=== PATIENT | female | born 1970 | race Caucasian/White ===

== ENCOUNTER 2017-01-02 19:41 | Emergency (ER) | payer OTHER ==
--- OUTSIDE RECORDS SUMMARY | 2017-01-02 20:30 | XMS REPORT | Continuity of Care Document ---
:1970 Author Organization [facility] ([facility]) [place] [address] Phone [phone] Care Team Providers Name Role Phone Dwayne Vazquez Primary Care Provider [phone] Source Comments This disclosure is being made pursuant to the Care Everywhere program, applicable federal and state laws, and may not contain all informaitonavailable regarding this patient.[facility] ([facility]) Active Allergies and Adverse Reactions No Active Allergies Current Medications Not on file Active Problems Problem Noted Date Cough 12/20/2006 Immunizations Name Dates Previously Given Next Due Influenza, unspecified 06/23/2006 Pneumococcal, unspecified 12/21/2006 Social History Tobacco Use Types Packs/Day Years Used Date Never Assessed Last Filed Vital Signs Vital Sign Reading Time Taken Blood Pressure 111/69 01/28/2007 1:50 PM CDT Pulse 98 01/28/2007 1:50 PM CDT Temperature 36.1 C (96.98 F) 01/28/2007 1:50 PM CDT Respiratory Rate 16 01/13/2007 11:26 AM CDT Height 1.59 m (5' 2.59") 01/20/2007 2:11 PM CDT Weight 109.997 kg (242 lb 8 oz) 01/28/2007 1:50 PM CDT Body Mass Index 43.51 01/28/2007 1:50 PM CDT Oxygen Saturation - - Plan of Care Date Type Specialty Providers Description 01/15/2017 Appointment Med Pulmonary Jamie Denton MD Chief Comp: Patient Reported Reason For Visit Health Maintenance Due Date Last Done Comments Hepatitis B Vaccine (1 of 3 - Primary Series) 1970 Tdap Vaccine 1979 Lipid Disorder Screening 1986 MMR Vaccine 1986 Td Vaccine 1986 Cervical Cancer Screening 1998 Mammogram 2008 Influenza Vaccine: Seasonal Completed 06/23/2006 Results from Last 3 Months Not on file
[2017-01-02] MEDS ORDERED: ALBUTEROL SULFATE/IPRATROPIUM 3 ML NEBU IH ONE ×4 (20:35→21:49)
--- NOTE | 2017-01-02 20:42 | ERNOTE ---
Medical Problem HPI - General Chief Complaint: General Assessment Time Seen by Provider: 01/02/17 20:24 Source: patient Exam Limitations: no limitations - Immun/Allergies/Home Medications Immunizations: IMMUNIZATION HX Immunizations Up to Date Yes History of Influenza Vaccine No Allergies/Adverse Reactions: Allergies No Known Allergies Allergy (Verified 01/02/17 19:50) Home Medications: HOME MEDICATIONS Ketorolac Tromethamine [Toradol] 10 mg PO Q6H PRN #20 tab 10/29/15 [Last Taken Unknown] Albuterol Sulfate/Ipratropium [Duoneb 2.5-0.5MG/3ML Soln] 3 ml IH QID #25 nebu 01/02/17 [Last Taken Unknown] Cetirizine HCl [Zyrtec] 10 mg PO DAILY 01/02/17 [Last Taken Unknown] predniSONE [Prednisone] 10 mg PO DAILY #40 tablet 01/02/17 [Last Taken Unknown] - History of Present History Narrative: Pt states that she has been having trouble with her lungs for approx 4 weeks. She was feeling well despite her allergy to maple trees and having [place] property. Last month there were a few days that were warm and she opened up the windows and has been having problems since then. she has seen the walk-in clinic [address] Harmon-[facility] twice as well. She has been on 2 antibiotics and prednisone 2 or 3 times. She just finished her last prednisone taper 2 days ago and worsened today. She believes her albuterol is not working for her anymore. She does receive weekly immunotherapy injections for her allergies Timing: getting worse Severity: moderate Modifying Factors - (Improves): Absent: medication Review of Systems - Review of Systems Constitutional: Present: recent illness, fatigue EYE: Present: no symptoms reported ENT: Present: nose congestion, nasal drainage Respiratory: Present: shortness of breath, cough, wheezing Cardiology: Present: no symptoms reported Gastrointestinal/Abdominal: Present: no symptoms reported Genitourinary: Present: no symptoms reported Musculoskeletal: Present: no symptoms reported Skin: Absent: rash Neurological: Present: no symptoms reported Endocrine: Present: no symptoms reported Hematologic/Lymphatic: Present: no symptoms reported Psych: Present: no symptoms reported - Patient's Past Medical History Patient History - Medical: Diabetes Type 2 Patient History - Cardiac/Respiratory: Asthma Patient History - Cancer: No Hx of Cancer Patient History - Surgical Procedures: Cholecystectomy Patient History - Other: None - Social History Living Situations: home Psych History: No pertinent hx Smoking Status: Former smoker Patient requests Smoking Cessation Consult: No Initiate information on Smoking Cessation: No Alcohol Use: none Drug Use: none - Immunizations Immunizations Up to Date: Yes History of Influenza Vaccine: No Physical Exam - Physical Exam General Appearance: Present: wd/wn, alert, no apparent distress Eye Exam: Normal inspection: bilateral, PERRL: bilateral, EOMI: bilateral Respiratory: Present: no respiratory distress, rales, wheezing - inspiratory and expiratory Cardiovascular/Chest: Present: regular rate, rhythm, no murmur, normal peripheral pulses Gastrointestinal/Abdominal: Present: normal bowel sounds Back Exam: Present: normal inspection Extremity Exam: Present: normal inspection, normal range of motion, no edema Neurological Exam: Present: alert, oriented, normal mood/affect Skin Exam: Present: normal color, warm/dry Lymphatic Exam: Present: no adenopathy ED Progress - Results and Orders Patient's Lab Results:: I have reviewed the patient's lab results. Results and Orders: Laboratory Tests 01/02/17 01/02/17 20:50 20:50 WBC 14.0 H Hgb 14.8 Hct 41.8 Plt Count 382 Eosinophils % 8.9 H Sodium 133 Potassium 3.9 Chloride 98 Carbon Dioxide 22.4 L Anion Gap 16.5 H BUN 16 Creatinine 0.70 BUN/Creatinine Ratio 22.9 H Random Glucose 359 H Calcium 10.0 Total Bilirubin 0.3 AST 21 ALT 48 Alkaline Phosphatase 101 Total Protein 7.5 Albumin 3.6 WBC and glucose elevated due to recent steroid use. - Vital Signs Patient's Vital Signs:: I have reviewed the patient's vital signs. Vital Signs: Vital Signs 01/02/17 19:46 Temperature 36 C L Pulse Rate 118 H Respiratory 95 H Rate Blood Pressure 182/85 O2 Sat by Pulse 95 Oximetry - X-Ray X-Ray #1 X-Ray: chest Interpretation: Reviewed by me X-ray Comments: No acute cardiopulmonary process detected - Progress/Reassessment Chief Complaint: General Assessment Progress:: Improved Progress Note-Subjective: 01/02/17 21:34 Pt. feels that the duoneb helped more than plain albuterol usually does Departure - Departure Clinical Impression: Bronchitis, allergic Qualifiers: Asthma severity: mild intermittent Asthma complication type: with acute exacerbation Qualified Code(s): J45.21 - Mild intermittent asthma with (acute) exacerbation Disposition: Home Follow Up Needed Condition: Good Instructions: Bronchospasm, Adult Additional Inst[facility] Referrals: Mp Robles MD [Primary Care Provider] - Prescriptions: Albuterol Sulfate/Ipratropium [Duoneb 2.5-0.5MG/3ML Soln] 3 ml IH QID #25 nebu predniSONE [Prednisone] 10 mg PO DAILY #40 tablet
[2017-01-02 20:57] LABS: Hematocrit 41.8 % (37.0-47.0); Hemoglobin 14.8 gm/dL (12.5-16.0); Mean Cell Volume 87.1 fl (78-100); Mean Corpuscular Hemoglobin 30.8 pg (27-31); Mean Corpuscular Hgb Conc 35.4 g/dl (32-36); Mean Platelet Volume 8.9 fl (6.0-9.5); Neutrophil # 8.2 K/mm3 (1.3-6.0); Neutrophil % 58.8 % (42-75.0); Platelet Count 382 K/mm3 (150-450); Red Cell Distribution Width 12.5 % (11.5-14.0)
[2017-01-02 21:11] LABS: Albumin * 3.6 gm/dl (3.4-5.0); Anion Gap 16.5 mmol/L (6.8-13.8); BUN/Creatinine Ratio 22.9 (9.0-21.6); Bilirubin, Total 0.3 mg/dL (0.0-1.1); Carbon Dioxide 22.4 mmol/L (24-32.6); Potassium 3.9 mmol/L (3.4-4.6); Total Protein 7.5 gm/dL (6.2-8.2)
[2017-01-02 21:29] VITALS: BP 151/92
[2017-01-02] MEDS ORDERED: predniSONE 20 MG TABLET PO ONE (21:40)
[2017-01-02] MEDS ORDERED: predniSONE 20 MG TABLET ONE (21:43)
== END 2017-01-02 21:51 | disposition home or self-care (01) ==
LOC: ER 19:41
DX: J45.21 Mild intermittent asthma with (acute) exacerbation (principal); Z87.891 Personal history of nicotine dependence